=== PATIENT | female | born 1995 | race Caucasian/White ===

== ENCOUNTER 2018-05-03 20:40 | Emergency (ER) | payer SELFPAY ==
[2018-05-03 21:37] LABS: ACETAMINOPHEN 18 ug/mL (10-30)
[2018-05-03] MEDS ORDERED: Potassium Chloride 20 MEQ Tab.ER PO STA (22:33)
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
[2018-05-03] MEDS ORDERED: cefTRIAXone 1 GM Vial IM ONE (22:46)
[2018-05-03] MEDS ORDERED: Diphtheria,Pertussis(Acell),Tetanus Vaccine 0.5 ML SDV IM ONE (22:46)
[2018-05-03] MEDS ORDERED: traMADol 50 MG Tab PO ONE (22:53)
[2018-05-03] MEDS ORDERED: cefTRIAXone 1 GM Vial ONE (23:11)
== END 2018-05-03 23:35 | disposition home or self-care (01) ==
LOC: FB.ED 20:40
DX: S51.812A Laceration without foreign body of left forearm, initial encounter (principal); Z23 Encounter for immunization; E87.6 Hypokalemia; Y33.XXXA Other specified events, undetermined intent, initial encounter
CPT/HCPCS: 12002; 36415; 80048; 80305; 84443; 85025; 90471; 90715; 96372; 99282; 99284; A9270; G0480; J0696